=== PATIENT | male | born 1975 | race Caucasian/White ===

== ENCOUNTER 2023-03-15 07:10 | Emergency (ER) | payer MEDICARE, MEDICAID ==
[2023-03-15] MEDS: Sodium Chloride 0.9% 1,000 ML IV SCH (07:25)
[2023-03-15 08:05] LABS: ANION GAP 17.6 mmol/L (5.0-15.0); BASOPHILS ABSOLUTE AUTO 0.03 K/uL (0.02-0.10); BASOPHILS PERCENT AUTO 0.4 % (0.0-0.5); BUN/CREATININE RATIO 15.4 (6-25); CALCIUM 8.7 mg/dL (8.5-10.1); CARBON DIOXIDE,CO2 23.6 mmol/L (21.0-32.0); CREATININE 0.91 mg/dL (0.70-1.30); EOSINOPHILS ABSOLUTE AUTO 0.12 K/uL (0.04-0.40); EOSINOPHILS PERCENT AUTO 1.6 % (1.0-5.0); EST CRCL DRUG DOSING (CG) 112.52 mL/min; HEMATOCRIT 43.2 % (40.0-54.0); HEMOGLOBIN 14.9 g/dL (13.0-18.0); LYMPHOCYTES ABSOLUTE AUTO 1.57 K/uL (1.50-4.00); LYMPHOCYTES PERCENT AUTO 20.6 % (20.0-40.0); MEAN CORPUSCULAR HEMOGLOBIN 31.2 pg (27.0-32.0); MEAN CORPUSCULAR HGB CONC 34.5 g/dL (31.0-35.0); MEAN CORPUSCULAR VOLUME 91 fL (76-96); MEAN PLATELET VOLUME 9.4 fL (6.0-10.0); MONOCYTES ABSOLUTE AUTO 0.67 K/uL (0.20-0.80); MONOCYTES PERCENT AUTO 8.8 % (3.0-10.0); NEUTROPHILS ABSOLUTE AUTO 5.23 K/uL (2.00-7.50); NEUTROPHILS PERCENT AUTO 68.6 % (45.0-70.0); PLATELET COUNT,PLT 231 K/uL (150-400); POTASSIUM,K 4.2 mmol/L (3.5-5.1); RED BLOOD CELL COUNT 4.77 M/uL (4.50-6.50); RED CELL DISTRIBUTION WIDTH 13.1 % (11.0-16.0); WHITE BLOOD CELL COUNT,WBC 7.6 K/uL (4.0-11.0)
[2023-03-15 10:02] VITALS: BP 133/72; PULSE 73
== END 2023-03-15 09:55 | disposition home or self-care (01) ==
LOC: LB.ED 07:10
DX: R42 Dizziness and giddiness (principal); Z79.899 Other long term (current) drug therapy
CPT/HCPCS: 36415; 70450; 80048; 84484; 85025; 93005; 99284; J7030